=== PATIENT | male | born 1990 | race Caucasian/White ===

== ENCOUNTER 2017-10-25 15:01 | Emergency (ER) | payer OTHER, MEDICAID, SELFPAY ==
[2017-10-25 15:10] VITALS: BP 131/78; PULSE 79; RESP 18; TEMP 37.2; O2SAT 98
--- NOTE | 2017-10-25 15:50 | PC.NURSE ---
Patient left without being seen at this time, afetr triage. I spoke with him about needing to get blood work and he reports he is pressed for time and I will go to [facility] later. Also reports will schedule an exam with PCP.
== END 2017-10-25 15:55 | disposition left against medical advice (07) ==
LOC: ED 15:04
PROVIDERS: Family Provider Family Medicine; PCP Family Medicine; Visit Provider Emergency Medicine
DX: R00.2 Palpitations (principal)
CPT/HCPCS: 93005; 99281; 99282

== ENCOUNTER 2018-11-20 23:37 | Emergency (ER) | payer OTHER, MEDICAID, SELFPAY ==
--- NOTE | 2018-11-20 23:41 | ED.ABDPAIN ---
HPI - Abdominal Pain General Chief Complaint: Urogenital-Male Stated Complaint: lower abdominal pain Time Seen by Provider: 11/20/18 23:40 Source: patient Mode of arrival: ambulatory Limitations: no limitations History of Present Illness HPI narrative: Patient is a 28-year-old male here for evaluation of bilateral lower abdominal pain radiating to his groin and also lower back pain. Patient states the symptoms have been going on for the past several days. He states that it did start when he was straining to urinate. He does feel like he is urinating and emptying his bladder. He states he has had kidney infections in the past and this feels similar to that. He states he is not concerned about any STIs. Has never had any STIs in the past. Related Data Home Medications Medication Instructions Recorded Confirmed albuterol sulfate 1 puff INHALATION Q4-6H PRN 10/25/17 10/25/17 Allergies Allergy/AdvReac Type Severity Reaction Status Date / Time No Known Drug Allergies Allergy Verified 10/25/17 15:15 Review of Systems Constitutional Denies fever(s) and Denies headache(s) ENT Ears, Nose, Mouth, and Throat: Denies headache(s) Cardiovascular Denies chest pain and Denies dyspnea Respiratory Denies dyspnea Gastrointestinal Gastrointestinal: Reports abdominal pain, Denies nausea and Denies vomiting Genitourinary Denies hematuria, Denies genital pain and Reports dysuria Musculoskeletal Denies myalgias and Denies arthralgias Integumentary/Breasts Denies lesions and Denies rash Neurologic Denies behavioral changes and Denies headache(s) Psychiatric Denies behavioral changes Hematologic/Lymphatic Denies easy bleeding and Denies easy bruising [facility] Medical History Patient denies medical problems (Acute) Social History Smoking Status: Former smoker Social History Smoking Status: Former smoker Exam Initial Vital Signs Initial Vital Signs: Vital Signs Temperature 98.2 F 11/20/18 23:44 Pulse Rate 94 H 11/20/18 23:44 Respiratory Rate 18 11/20/18 23:44 Blood Pressure 145/86 H 11/20/18 23:44 Pulse Oximetry 98 11/20/18 23:44 Const General: cooperative, comfortable, well developed, well groomed and No acute distress Orientation: alert, awake and oriented x3 HENMT Head: normal to inspection and normocephalic Resp Effort & Inspection: normal respiratory effort Cardio Rate: regular rate GI Inspection: non-distended Palpation: soft, No firm and No tender External: normal external exam and circumcised Penis: normal penis Scrotum: scrotum normal Testes: normal and epididymides normal Back/Spine/Pelvis Back: No CVA tenderness Skin Lesions: no lesions Rashes: no rashes Neuro General: alert and awake Speech: speech normal Motor: muscle tone normal throughout Sensory Exam: no sensory deficits noted Extrem General: normal to inspection and capillary refill normal Psych Appearance: grossly normal and well kempt Course Vital Signs - 8 hr 11/20/18 23:44 Temperature 98.2 F Pulse Rate 94 H Respiratory Rate 18 Blood Pressure 145/86 H Pulse Oximetry 98 MDM - Abdominal Pain Lab Data Attestation: I reviewed the patient's lab results. Point of care testing: Urine Dip Bedside Urine Glucose Negative Bedside Urine Bilirubin - Negative Bedside Urine Ketone - Negative Urine Specific Yarnell 1.015 Bedside Urine Occult Blood - Negative Bedside Urine pH 6.0 Bedside Urine Protein +/- 15 Bedside Urine Urobilinogen - Negative Bedside Urine Nitrite - Negative Bedside Urine Leukocytes - Negative Esterase [facility] Narrative Medical decision making narrative: Patient has a benign abdominal exam and did not have much tenderness to palpation. He has no CVA tenderness. His urinalysis is not consistent with a UTI so I feel that a kidney infection is unlikely also given the setting of no fevers. His testicular exam was unremarkable. He did have a small amount of tenderness with palpation of the right epididymis. He has no concerns for STi. He has never had an STI in the past. I feel given the benign nature of his abdominal exam that a CT scan is not warranted. Given his lack concern for a sexually transmitted infection will hold on any antibiotics for now. I will have him continue with ibuprofen and supportive clothing and ice. He was given return precautions and follow-up instructions. He expressed understanding and agreement with plan. Discharge Plan Departure Patient Disposition: Home Clinical Impression: Abdominal pain Qualifiers: Abdominal location: lower abdomen, unspecified Qualified Code(s): R10.30 - Lower abdominal pain, unspecified Discharge Date/Time: 11/21/18 00:03 Instructions: DI for Abdominal Pain-Adult Activity Restrictions/Additional Instructions: Recommend that you continue with the ibuprofen/Motrin and the supportive underwear and using ice like we discussed. Contact your primary provider for follow-up. Return to the emergency department for any new symptoms or worsening symptoms. Prescriptions: No Action albuterol sulfate 90 mcg/actuation Hfa Aerosol Inhaler 1 puff INHALATION Q4-6H PRN (Reason: asthma) RF: 0
[2018-11-20 23:44] VITALS: BP 145/86; PULSE 94; RESP 18; TEMP 36.8; O2SAT 98; BMI 27.1
== END 2018-11-21 00:03 | disposition home or self-care (01) ==
PROVIDERS: Emergency Provider Emergency Medicine
DX: R10.30 Lower abdominal pain, unspecified (principal)
CPT/HCPCS: 81003; 99282; 99283

== ENCOUNTER 2018-12-18 11:43 | Emergency (ER) | payer OTHER, MEDICAID, SELFPAY ==
[2018-12-18 12:12] VITALS: BP 142/90; PULSE 98; RESP 18; TEMP 36.3; O2SAT 98
--- NOTE | 2018-12-18 12:13 | DI.RAD.S_ITS ---
PROCEDURE: XR CHEST 2V INDICATIONS: cough, sob TECHNIQUE: 2 views of the chest were acquired. COMPARISON: [facility], , CHEST 2 VIEW, 09/22/2013, 8:34. FINDINGS: Surgical changes and devices: None. Lungs and pleura: There may be an area of increased density overlying the left heart border within the left lung base. No effusion or pneumothorax is evident. Mediastinum: Mediastinal contours are normal. Heart size is normal. Bones and chest wall: No suspicious bony abnormalities. Soft tissues appear unremarkable. IMPRESSION: Possible developing airspace disease at the left lung base. Please correlate clinically to exclude pneumonia. Dictated by: John Lafluer M.D. on 12/18/2018 at 11:34 Approved by: John Lafleur M.D. on 12/18/2018 at 11:35
--- NOTE | 2018-12-18 13:16 | ED.URI ---
HPI - URI/Sore Throat <ANNETTA ColonP- - Last Filed: 12/18/18 14:36> General Chief Complaint: Upper Respiratory Symptoms Stated Complaint: broncitis ? hard time breathing cough a lot Time Seen by Provider: 12/18/18 12:06 Source: patient Mode of arrival: ambulatory Limitations: no limitations History of Present Illness HPI Narrative: The patient is a 28-year-old male former smoker with history of asthma who presents with a chief complaint of a productive yellow cough. He states that he had a cold on Sunday, got worse today. He complains of chills, sweats, scratchy throat, pressure in ears. He denies any nausea vomiting or diarrhea. He states he feels wheezy. Does have history of asthma. Is concerned because he has a 9-month-old child at home. Denies any chest pain or shortness of breath. Related Data Home Medications Medication Instructions Recorded Confirmed albuterol sulfate 1 puff INHALATION Q4-6H PRN 10/25/17 10/25/17 Previous Rx's Medication Instructions Recorded albuterol sulfate 2 puff INHALATION Q4-6H PRN #18 12/18/18 gram doxycycline hyclate 100 mg PO BID #20 cap 12/18/18 Allergies Allergy/AdvReac Type Severity Reaction Status Date / Time No Known Drug Allergies Allergy Verified 12/18/18 12:14 Review of Systems <ANNETTA ColonPMinerva - Last Filed: 12/18/18 14:36> Constitutional Constitutional: Reports as per HPI ENT Ears, Nose, Mouth, and Throat: Reports as per HPI Cardiovascular Cardiovascular: Denies chest pain and Denies chest pain at rest Respiratory Respiratory: Reports as per HPI, Reports chest congestion, Reports cough and Denies hemoptysis Gastrointestinal Gastrointestinal: Reports system reviewed and no additional complaints, except as docu Genitourinary Genitourinary: Reports system reviewed and no additional complaints, except as docu Musculoskeletal Musculoskeletal: Reports system reviewed and no additional complaints, except as docu Integumentary/Breasts Skin/Breast: Reports system reviewed and no additional complaints, except as docu Neurologic Neurologic: Reports system reviewed and no additional complaints, except as docu Endocrine Endocrine: Reports system reviewed and no additional complaints, except as docu PFSH <[facility] - Last Filed: 12/18/18 14:36> Medical History Patient denies medical problems (Acute) Social History Smoking Status: Former smoker Social History Smoking Status: Former smoker Exam <BALJINDER Colon - Last Filed: 12/18/18 14:36> Narrative Exam Narrative: GENERAL: This is a well-nourished, well-developed patient, no acute distress HEAD: Atraumatic. Normocephalic. No temporal or scalp tenderness. EYES: Pupils equal round and reactive. Extraocular motions intact. No scleral icterus. No injection or drainage. ENT: Nose without bleeding, purulent drainage or septal hematoma. Throat without erythema, tonsillar hypertrophy or exudate. Uvula midline. Airway patent. Bilateral TMs pearly ulrich. No abnormalities bilateral ear canals. NECK: Trachea midline. No JVD or lymphadenopathy. Supple, nontender, no meningeal signs. CARDIOVASCULAR: Regular rate and rhythm without murmurs, gallops, or rubs. RESPIRATORY: Coarse lower left to auscultation. . No wheezes, rales, or rhonchi bilaterally. Persistent productive cough on exam. GASTROINTESTINAL: Abdomen soft, non-tender, nondistended. No hepato-splenomegaly, or palpable masses. No guarding. Active bowel sounds all 4 quadrants. EXTREMITIES: No clubbing, cyanosis, or edema. No joint tenderness, effusion, or edema noted. BACK: Nontender without deformity or crepitance. No flank tenderness. NEURO: AOx3. SKIN: No rash or erythema. Initial Vital Signs Initial Vital Signs: Vital Signs Temperature 97.4 F L 12/18/18 12:12 Pulse Rate 98 H 12/18/18 12:12 Respiratory Rate 18 12/18/18 12:12 Blood Pressure 142/90 H 12/18/18 12:12 Pulse Oximetry 98 12/18/18 12:12 <Bang Mcmullen DO - Last Filed: 12/18/18 22:04> Initial Vital Signs Initial Vital Signs: Vital Signs Temperature 97.4 F L 12/18/18 12:12 Pulse Rate 98 H 12/18/18 12:12 Respiratory Rate 18 12/18/18 12:12 Blood Pressure 142/90 H 12/18/18 12:12 Pulse Oximetry 98 12/18/18 12:12 Course <BALJINDER Colon - Last Filed: 12/18/18 14:36> Orders Ordered: ED Orders 12/18/18 12:13 XR chest 2V Stat Influenza A and B by PCR Rapid Stat RT Consult Eval and Treat NOW Vital Signs Vital signs: Vital Signs - 8 hr 12/18/18 12:12 Temperature 97.4 F L Pulse Rate 98 H Respiratory Rate 18 Blood Pressure 142/90 H Pulse Oximetry 98 <Bang Mcmullen DO - Last Filed: 12/18/18 22:04> Orders Ordered: ED Orders 12/18/18 12:13 XR chest 2V Stat Influenza A and B by PCR Rapid Stat RT Consult Eval and Treat NOW Vital Signs Vital signs: Vital Signs - 8 hr 12/18/18 12:12 Temperature 97.4 F L Pulse Rate 98 H Respiratory Rate 18 Blood Pressure 142/90 H Pulse Oximetry 98 MDM - URI/Sore Throat <BALJINDER Colon - Last Filed: 12/18/18 14:36> Imaging Data Chest x-ray: Radiologist's impression: [address] [address] XRay Report Signed Patient: Philip Cleaning MMR#: [id number] : 1990Acct:[id number] Age/Sex: 28 / MDate of Service: 12/18/18 Loc: ED Accession Number: [id number] Procedure: XR chest 2V Ordering Provider: Jahaira Michele PROCEDURE: XR CHEST 2V INDICATIONS: cough, sob TECHNIQUE: 2 views of the chest were acquired. COMPARISON: [facility], [place], CHEST 2 VIEW, 09/22/2013, 8:34. FINDINGS: Surgical changes and devices: None. Lungs and pleura: There may be an area of increased density overlying the left heart border within the left lung base. No effusion or pneumothorax is evident. Mediastinum: Mediastinal contours are normal. Heart size is normal. Bones and chest wall: No suspicious bony abnormalities. Soft tissues appear unremarkable. IMPRESSION: Possible developing airspace disease at the left lung base. Please correlate clinically to exclude pneumonia. Dictated by: John Lafleur M.D. on 12/18/2018 at 11:34 Approved by: John Lafleur M.D. on 12/18/2018 at 11:35 MDM Narrative Medical decision making narrative: The patient is a 28-year-old male who presents with a chief complaint of shortness of breath, productive cough and concern for pneumonia. He does have history of asthma. There is concern for a left lower lobe infiltrate on his x-ray, so initiate treatment with doxycycline for pneumonia. I discussed at length follow up with his PCP. The patient is given a prescription of albuterol was evaluated by respiratory therapist. He received incentive spirometry teaching. I did give him several days off of work. Discussed coming back to the ER for any acute concerns such as significant shortness of breath etc. Encouraged [id number] medications as needed and able. Patient has no questions or concerns upon discharge. Discharge Plan Departure Patient Disposition: Home Clinical Impression: Community acquired pneumonia Qualifiers: Laterality: left Lung location: lower lobe of lung Qualified Code(s): J18.1 - Lobar pneumonia, unspecified organism Discharge Date/Time: 12/18/18 13:34 Instructions: How to Use a Metered-Dose Inhaler, How to Use an Incentive Spirometer, DI for Pneumonia -- Adult Activity Restrictions/Additional Instructions: There is concern for pneumonia on her x-ray, so I have started you on an antibiotic. Please use sunscreen. Please follow up with primary care provider's office. Please use your inhaler incentive spirometer as we Discussed. Please come back to the emergency department for any acute concerns such as significant shortness of breath. I have given you several days off to recover. Please take her antibiotics and take the whole course, please push fluids and use [id number] medications as needed and able. Prescriptions: New albuterol sulfate 90 mcg/actuation HFA aerosol inhaler 2 puff INHALATION Q4-6H PRN (Reason: shortness of breath or wheezing) Qty: 18 RF: 0 doxycycline hyclate 100 mg capsule 100 mg PO BID Qty: 20 RF: 0 No Action albuterol sulfate 90 mcg/actuation Hfa Aerosol Inhaler 1 puff INHALATION Q4-6H PRN (Reason: asthma) RF: 0 Referrals: Tu Zuniga MD [Non-Staff] - Stand Alone Forms: Work Release Note, Work/School Release
== END 2018-12-18 13:34 | disposition home or self-care (01) ==
PROVIDERS: Emergency Provider Nurse Practitioner Family
DX: J18.1 Lobar pneumonia, unspecified organism (principal)
CPT/HCPCS: 71046; 99282; 99283

== ENCOUNTER 2019-02-18 16:52 | Emergency (ER) | payer OTHER, MEDICAID, SELFPAY ==
[2019-02-18 16:55] VITALS: BP 134/88; PULSE 75; RESP 16; TEMP 36.6; O2SAT 97; BMI 27.1
[2019-02-18] MEDS: IBUPROFEN 400 MG TABLET 800 MG PO (18:16)
--- NOTE | 2019-02-18 18:31 | ED_ITS ---
HPI - Dental/Oral <JAMARI Corrales - Last Filed: 02/18/19 21:11> General Chief complaint: Dental/Oral Stated complaint: pain s/p tooth extraction Time Seen by Provider: 02/18/19 18:07 Source: patient Mode of arrival: Ambulatory History of Present Illness HPI Narrative: 28-year-old male presents to the emergency department after a wisdom tooth extraction to his right upper wisdom to today around 11:00 p.m.. He states he has had his wisdom teeth taken out in the past and it usually requires a Vicodin to help with the pain. However, patient states he was given Tylenol and ibuprofen but the pain continues. He states it is a sharp stabbing/jolting pain that is a 8/10 that is worse with drinking or eating. He states the procedure was completed at [facility] in [place]. He denies any fevers, chills, nausea, vomiting, sore throat, drop pain, abdominal pain, or other concerns. Related Data Home Medications Medication Instructions Recorded Confirmed albuterol sulfate 1 puff INHALATION Q4-6H PRN 10/25/17 10/25/17 Previous Rx's Medication Instructions Recorded albuterol sulfate 2 puff INHALATION Q4-6H PRN #18 12/18/18 gram doxycycline hyclate 100 mg PO BID #20 cap 12/18/18 hydrocodone-acetaminophen [[place]] 1 tab PO Q4-6H PRN #10 tab 02/18/19 Allergies Allergy/AdvReac Type Severity Reaction Status Date / Time No Known Drug Allergies Allergy Verified 02/18/19 16:58 Review of Systems <JAMARI Corrales - Last Filed: 02/18/19 21:11> Review of Systems Narrative: REVIEW OF SYSTEMS: GENERAL: Denies fever or chills. HENT: No head trauma, hearing loss or sore throat. Complains of tooth pain, see HPI. EYES: No loss of vision, double vision, eye pain, or irritation. CARDIOVASCULAR: No chest pain or syncope. RESPIRATORY: No shortness of breath or cough. GASTROINTESTINAL: No nausea, vomiting, diarrhea, or constipation. GENITOURINARY: No flank pain or dysuria. MUSCULOSKELETAL: No pain, weakness, or deformities. INTEGUMENTARY: No rash, lesions, or pruritus. NEURO: No numbness, tingling, memory loss, or confusion. PSYCH: No behavior or mood changes. Patient History <JAMARI Corrales - Last Filed: 02/18/19 21:11> Medical History Patient denies medical problems (Acute) Social History Smoking Status: Former smoker alcohol intake frequency: 0-2 drinks per day Substance Use Type: marijuana Exam <JAMARI Corrales - Last Filed: 02/18/19 21:11> Initial Vital Signs Initial Vital Signs: Vital Signs Temperature 97.8 F 02/18/19 16:55 Pulse Rate 75 02/18/19 16:55 Respiratory Rate 16 02/18/19 16:55 Blood Pressure 134/88 02/18/19 16:55 Pulse Oximetry 97 02/18/19 16:55 PHYSICAL EXAMINATION: GENERAL: Well groomed, alert, and cooperative. Answers questions promptly and appropriately. Vital signs noted. HENT: Normocephalic, atraumatic. Ear canals patent. Oral mucosa is pink and moist. There is a indentation to the right upper posterior aspect of gums where was deemed tooth was extracted. No exudate and no bleeding. A very small amount of erythema to the area without concern for infection. EYES: Conjunctiva pink, sclera white, no periorbital swelling. CHEST: Normal to inspection and without deformities. CARDIOVASCULAR: Regular rate. RESPIRATORY: Normal respiratory rate, trachea midline, airway patent. No stridor, nasal flaring or accessory muscle use. GASTROINTESTINAL: Bowel sounds normoactive. Abdomen is soft and non-tender. No organomegaly. MUSCULOSKELETAL: Normal gait and coordination. Equal tone and mass bilaterally. EXTREMITIES: CMS intact. Moves all extremities. SKIN: Warm, dry, soft, appropriate color for ethnicity. No lesions, rashes, or wounds. NEURO: Alert and Oriented X 3. Good coordination. No ataxia, or sensory deficits, or cognitive issues. PSYCH: Appropriate affect and mood. <Negin Paul DO - Last Filed: 02/20/19 07:42> Initial Vital Signs Initial Vital Signs: Vital Signs Temperature 97.8 F 02/18/19 16:55 Pulse Rate 75 02/18/19 16:55 Respiratory Rate 16 02/18/19 16:55 Blood Pressure 134/88 02/18/19 16:55 Pulse Oximetry 97 02/18/19 16:55 Course <JAMARI Corrales - Last Filed: 02/18/19 21:11> Orders Ordered: Discontinued Medications Ibuprofen (Advil) 800 mg PO NOW ONE Stop: 02/18/19 18:09 Last Admin: 02/18/19 18:16 Dose: 800 mg Documented by: ALEXUS Vital Signs Vital signs: Vital Signs - 8 hr 02/18/19 16:55 02/18/19 18:44 Temperature 97.8 F Pulse Rate 75 78 Respiratory Rate 16 Blood Pressure 134/88 141/83 H Pulse Oximetry 97 98 <Negin Paul DO - Last Filed: 02/20/19 07:42> Orders Ordered: Discontinued Medications Ibuprofen (Advil) 800 mg PO NOW ONE Stop: 02/18/19 18:09 Last Admin: 02/18/19 18:16 Dose: 800 mg Documented by: ALEXUS Vital Signs Vital signs: Vital Signs - 8 hr 02/18/19 16:55 02/18/19 18:44 Temperature 97.8 F Pulse Rate 75 78 Respiratory Rate 16 Blood Pressure 134/88 141/83 H Pulse Oximetry 97 98 MDM - Dental/Oral <JAMARI Corrales - Last Filed: 02/18/19 21:11> Medical Records Attestation: I reviewed the patient's medical records. Lab Data Attestation: I reviewed the patient's lab results. MDM Narrative Medical decision making narrative: This is a 28-year-old male who is a few hours status post wisdom tooth extraction presenting to the emergency department for pain control. He was not discharged with pain medication from the dentist as the procedure was done at [facility]. Less concern for infection due to timing of tooth extraction, lack of significant erythema, and lack of exudate. Patient had taken Tylenol and ibuprofen prior to arrival. He was given a prescription for a small amount of [place]. Patient was counseled about refraining from driving with this medication. He is encouraged to follow up with his dentist as scheduled. Return precautions given. Discharge Plan Departure Patient Disposition: Home Clinical Impression: S/P wisdom tooth extraction Discharge Date/Time: 02/18/19 18:44 Instructions: DI on Tooth Extraction Activity Restrictions/Additional Instructions: Thank you for entrusting me with your care today. As discussed, I have given you a prescription for pain. You have been prescribed a narcotic medication, this medication can make you drowsy. Do not drive while using this medication or perform activities that require mental alertness. These medications can also make you constipated, please use [id number] docusate sodium as needed for constipation. Follow up with your dentist as directed. Return emergency department for new or worsening symptoms. Prescriptions: New hydrocodone-acetaminophen [[place]] 5-325 mg tablet 1 tab PO Q4-6H PRN (Reason: pain) Qty: 10 RF: 0 No Action albuterol sulfate 90 mcg/actuation HFA aerosol inhaler 2 puff INHALATION Q4-6H PRN (Reason: shortness of breath or wheezing) Qty: 18 RF: 0 doxycycline hyclate 100 mg capsule 100 mg PO BID Qty: 20 RF: 0 albuterol sulfate 90 mcg/actuation Hfa Aerosol Inhaler 1 puff INHALATION Q4-6H PRN (Reason: asthma) RF: 0
[2019-02-18 18:44] VITALS: BP 141/83; PULSE 78; O2SAT 98
== END 2019-02-18 18:44 | disposition home or self-care (01) ==
PROVIDERS: Emergency Provider Nurse Practitioner
DX: Z98.818 Other dental procedure status (principal)
CPT/HCPCS: 99282